=== PATIENT | female | born 1995 | race Caucasian/White ===

== ENCOUNTER → 2016-10-18 | Outpatient (CLI) | payer BC ==
[~2016-10-18] MED LIST: BCPILLS PO
--- NOTE | 2016-10-18 13:11 | MAMMOGRAPHY REPORT ---
ULTRASOUND OF RIGHT BREAST: 10/18/2016 CLINICAL HISTORY: The patient reports that her provider felt a palpable right breast lump during a p hysical exam. The lump is not tender. COMPARISON: No prior exams were available for comparison. TECHNIQUE: Real-time targeted ultrasound of the right breast was performed. FINDINGS: Real-time, high resolution targeted ultrasound was performed of the area of the palpable lump pointe d out by the patient, in the right breast at 9:00 periareolar region. At the site of the palpable l ump there is an oval hypoechoic circumscribed parallel solid mass which measures 1.9 x 1.5 x 0.8 cm. The mass is indeterminate and ultrasound-guided core needle biopsy is recommended for further eval uation. IMPRESSION: ACR BI-RADS CATEGORY 4A: LOW SUSPICION FOR MALIGNANCY - FOLLOW-UP RECOMMENDED Hypoechoic solid 1.9 cm mass at the site of the palpable right 9:00 breast lump. The mass is indete rminate and ultrasound guided core needle biopsy is recommended for further evaluation. This likely represents a fibroadenoma. A phone call was made to the physician's office to confirm faxed results were received. The patient was verbally notified of the results. Jo-Ann Rose M.D. /:10/18/2016 11:05:33 An/Syq 13 Nav/C2 Operator: Jo-Ann Rose MD, [facility] letter sent: Abnormal 4/5 BI-RADS Code: ACR BI-RADS Category 4A: Low Suspicion For Malignancy
== END | disposition home or self-care (01) ==
LOC: C.MAMM 10:32
PROVIDERS: ATTEND Nurse Practitioner Women's Health
DX: N63 Unspecified lump in breast (principal)